=== PATIENT | female | born 1965 | race Caucasian/White ===

== ENCOUNTER → 2016-09-07 | Day surgery (SDC) ==
--- NOTE | 2016-09-07 10:15 | OPERATIVE NOTE ---
PROCEDURE DATE: 09/07/2016 PREOPERATIVE DIAGNOSIS: Class 4 mammogram, upper outer quadrant left side. PROCEDURE: Ultrasound biopsy. PROCEDURE IN DETAIL: The patient is brought to the Ultrasound Suite and placed in supine position. After her breast was prepped and draped, Xylocaine was introduced around the lesion under ultrasound guidance. A stab wound was made and a SenoRx needle was placed into the lesion. Multiple cores were obtained. A titanium marker was placed on needle removal. Compression dressing was applied. The patient was allowed to dress and go home.
== END | disposition home or self-care (01) ==
LOC: MAMMO 07:52 → EDSTATUS 08:30
PROVIDERS: ATTEND Surgery
DX: D24.2 Benign neoplasm of left breast (principal)
CPT/HCPCS: 19083; 88305; A4648

== ENCOUNTER 2016-11-20 07:30 | Inpatient (IN) ==
[2016-12-12 14:31] LABS: MANUAL DIFF NEEDED? NO; URINE MICRO REVIEW NEEDED? NO; URINE SOURCE VOIDED
[2016-12-12 14:43] LABS: BILIRUBIN URINE NEGATIVE (NEGATIVE); BLOOD URINE NEGATIVE (NEGATIVE); COLOR YELLOW; GLUCOSE URINE NEGATIVE (NEGATIVE); LEUKOCYTES URINE NEGATIVE (NEGATIVE); NITRITE URINE POSITIVE (NEGATIVE); PROTEIN URINE NEGATIVE (NEGATIVE); SP GRAVITY URINE 1.021; TURBIDITY URINE CLEAR (CLEAR); UROBILINOGEN URINE NORMAL (NORMAL)
[2016-12-12 14:45] LABS: UR EPITHELIAL CELLS <10 /HPF (<10); URINE BACTERIA 4+ /HPF; URINE RBC <10 /HPF (<10); URINE WBC <10 /HPF (<10)
[2016-12-12 14:54] LABS: BASO% 0.6 % (0.0-0.8); EOS# 0.17 X1000 (0.0-0.7); EOS% 2.7 % (0.0-10.0); HEMATOCRIT 38.4 % (37.0-47.0); HEMOGLOBIN 12.6 g/dL (12.0-16.0); LYMPH# 2.23 X1000 (1.2-3.4); LYMPH% 35.6 % (20.5-51.1); MCH 28.3 PG (27-31); MCHC 32.8 g/dL (33-37); MCV 86.3 FL (81-99); MONO# 0.46 X1000 (0.11-0.59); MONO% 7.3 % (1.7-9.3); MPV 9.9 FL (7.4-10.4); NEUT% 53.8 % (42.2-75.2); PLT 309 X1000 (130-400); RBC 4.45 XMIL (4.2-5.4)
[2016-12-12 15:15] LABS: AGAP 11; ALBUMIN 4.2 g/dL (3.5-5.0); ALKALINE PHOSPHATASE 67 U/L (32-104); BUN 14 mg/dL (8-22); CALCIUM 8.7 mg/dL (8.8-10.2); CHLORIDE 101 mmol/L (98-107); COSMO 274; GOT 20 U/L (10-30); GPT 22 U/L (10-36); POTASSIUM 4.5 mmol/L (3.5-5.1); SODIUM 137 mmol/L (136-145); TCO2 25 mmol/L (25-35); TOTAL BILIRUBIN 0.62 mg/dL (0.20-1.00); TOTAL PROTEIN 7.6 g/dL (6.3-8.3)
[2016-12-19] MEDS ORDERED: LR 1,000 ML ONE ×2 (06:07→12:36)
[2016-12-19] MEDS ORDERED: PEPCID ONE (06:07)
[2016-12-19] MEDS ORDERED: REGLAN ONE (06:07)
[2016-12-19] MEDS ORDERED: TRANSDERM-SCOP ONE (06:07)
[2016-12-19] MEDS ORDERED: KEFZOL 2 GM/D5W 2 GM/50 ML IVPB ONE (06:07)
[2016-12-19] MEDS ORDERED: LOVENOX ONE (06:07)
[2016-12-19] MEDS ORDERED: COREG ONE (06:30)
[2016-12-19] MEDS ORDERED: COREG PO ONE (06:45)
[2016-12-19] MEDS ORDERED: NS 250 ML ONE (07:07)
[2016-12-19] MEDS ORDERED: NS 2,000 ML ONE (07:07)
[2016-12-19] MEDS ORDERED: BACITRACIN ONE (07:08)
[2016-12-19] MEDS ORDERED: EXPAREL 1.3% ONE (07:08)
[2016-12-19] MEDS ORDERED: METHYLENE BLUE 0.5% IV ONE (07:15)
[2016-12-19 08:16] LABS: URINE MICRO REVIEW NEEDED? NO; URINE SOURCE CATH
--- NOTE | 2016-12-19 08:27 | Diag Imaging Result Document ---
PROCEDURE NAME: LYMPHOSCINTIGRAPHY W/IMG - 12/19/2016 LYMPHOSCINTIGRAPHY OF THE LEFT BREAST: COMPARISON: None. FINDINGS: 527 mCi of radiotracer was injected. After a delay, there was appearance of at least one sentinel lymph node in the medial left breast. No definite axillary sentinel lymph node visible. IMPRESSION: [place] lymph node visible in the medial left breast.
[2016-12-19] MEDS ORDERED: KEFZOL 1 GM/D5W 1 GM/50 ML IVPB ONE (10:49)
[2016-12-19 11:36] LABS: BILIRUBIN URINE NEGATIVE (NEGATIVE); BLOOD URINE NEGATIVE (NEGATIVE); COLOR YELLOW; GLUCOSE URINE NEGATIVE (NEGATIVE); LEUKOCYTES URINE NEGATIVE (NEGATIVE); NITRITE URINE NEGATIVE (NEGATIVE); PH URINE 5.5; PROTEIN URINE NEGATIVE (NEGATIVE); SP GRAVITY URINE 1.012; TURBIDITY URINE CLEAR (CLEAR); UROBILINOGEN URINE NORMAL (NORMAL)
[2016-12-19 11:37] LABS: UR EPITHELIAL CELLS <10 /HPF (<10); URINE BACTERIA NEGATIVE /HPF; URINE RBC <10 /HPF (<10); URINE WBC <10 /HPF (<10)
[2016-12-19] MEDS ORDERED: FENTANYL ONE (12:22)
[2016-12-19] MEDS ORDERED: DIPRIVAN 1% ONE (12:23)
[2016-12-19] MEDS ORDERED: VERSED ONE (12:23)
[2016-12-19] MEDS ORDERED: MORPHINE PCA ONE (12:36)
[2016-12-19] MEDS ORDERED: MORPHINE ONE (12:47)
[2016-12-19] MEDS ORDERED: SODIUM CHLORIDE 0.9% INJ PRN (12:52)
[2016-12-19] MEDS ORDERED: MORPHINE PCA IV PRN (12:52)
[2016-12-19] MEDS ORDERED: NARCAN IV PRN (12:52)
[2016-12-19] MEDS ORDERED: PHENERGAN IV PRN (12:52)
[2016-12-19] MEDS ORDERED: LR 1,000 ML IV SCH (12:52)
[2016-12-19] MEDS ORDERED: NEOSTIGMINE ONE (13:21)
[2016-12-19] MEDS ORDERED: STERILE WATER INJ. ONE (13:21)
[2016-12-19] MEDS ORDERED: NORCURON ONE (13:21)
[2016-12-19] MEDS ORDERED: ZOFRAN ONE (13:21)
[2016-12-19] MEDS ORDERED: ROBINUL ONE (13:22)
[2016-12-19] MEDS ORDERED: QUELICIN (DOSE) ONE (13:22)
[2016-12-19] MEDS ORDERED: LR 3,000 ML ONE (13:22)
[2016-12-19] MEDS ORDERED: XYLOCAINE-MPF 2% ONE (13:22)
[2016-12-19] MEDS ORDERED: KLOR-CON PO PRN (14:12)
[2016-12-19] MEDS ORDERED: ULTRAM PO PRN ×2 (14:12→17:28)
[2016-12-19] MEDS ORDERED: NEURONTIN PO PRN (14:12)
[2016-12-19] MEDS ORDERED: BUSPAR PO PRN (14:12)
[2016-12-19] MEDS: LR 1,000 ML IV SCH ×2 (14:49→18:52)
--- NOTE | 2016-12-19 15:08 | OPERATIVE NOTE ---
PROCEDURE DATE: 12/19/2016 PREOPERATIVE DIAGNOSIS: Carcinoma in situ, left breast. POSTOPERATIVE DIAGNOSIS: Carcinoma in situ, left breast. PROCEDURE: Total mastectomy with sentinel nodes on the left, simple mastectomy on the right with planned reconstruction by Dr. Holley that will be covered in a separate operative note. DESCRIPTION OF THE PROCEDURE: The patient has brought to the operating room. After satisfactory induction of IV and endotracheal anesthesia, athrombic TEDs and a Payton catheter were placed. Both breasts were prepped and draped in the appropriate manner. Initially, a simple mastectomy was performed on a previously marked out area by Dr. Holley. Dissection was taken with superior and inferior flaps being elevated and dissection taken down to the fascia of the pectoralis major muscle. The breast was swept laterally. On reaching the lateral border of the pectoralis, the breast itself was amputated. Primary dissection was performed with a knife and electrocautery. Estimated blood loss was around 75 mL. Area was then packed away. Attention was then taken to the left side. A similar mastectomy was performed on the left side with removal of 1 sentinel node. Again, superior and inferior flaps were elevated with primary dissection being performed by a knife and electrocautery. The pectoralis fascia was left. The breast flaps were felt to be satisfactory in thickness. The breast was amputated after removal of the sentinel node. This area was likewise packed away. Dr. Holley will subsequently enter the suite to initiate the reconstruction part of the surgery. Estimated blood loss for my part was about 150 mL. cc: Tomi Callejas MD
--- NOTE | 2016-12-19 17:36 | OPERATIVE NOTE ---
PROCEDURE DATE: 12/19/20162016 PROCEDURE: Bilateral placement of submuscular tissue expanders for breast reconstruction. SURGEON: Myron Holley MD ICD 10 DIAGNOSIS CODE: Z85.3, personal history of breast cancer. CPT CODE: 60570, placement tissue utility division project manager, [id number], placement of tissue utility division project manager on the other side. INDICATIONS FOR PROCEDURE: The patient is a 51-year-old white female who has a personal history of breast cancer with Dr. 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 She desires bilateral mastectomies to prevent cancer in the future. Dr. Callejas agrees with the plan. My plan is to put in bilateral submuscular tissue expanders for breast reconstruction. She was seen in the office for informed consent on 11/21/2016. At that point, she understood that she would have a breast reconstruction done after Dr. Callejas does the mastectomies with temporary submuscular tissue expanders. She understood that there would be a period of time when we were doing her expansion when she will not have optimal breast shape and she understands that exact shape and exact bra cup sizes cannot be guaranteed. She knows risks include infection, blood loss, blood clots in legs, heart problems, lung problems, allergic reactions, or blood and serum collections in the operative sites which might require drainage. She understands that tissue expanders are expandable devices that have a magnet in them so the fill port can be identified. She cannot have an MRI scan while the magnet is in place. She understands exact size, shape cannot be guaranteed. She knows her skin incision will be the regular mastectomy incision that is where the scars will be. DESCRIPTION OF PROCEDURE: The patient brought to the operating room after marked outpatient surgery in sitting position. She went to the operating room, had general anesthesia, was prepped and draped. The crucial corners of markings were tattooed methylene blue. The folds were marked with silk sutures to prevent dissecting them free. Once she was prepped and draped Dr. Callejas proceeded to do the mastectomies and sentinel lymph node biopsy on the left side. When he was completed the reconstruction began. Submuscular pockets were dissected under the pectoralis major muscle and under the pectoralis minor muscle. Once the submuscular pockets were dissected and equal underneath she was irrigated bacitracin solution. Exparel was injected into the muscles and subcutaneous tissue for postoperative pain control. She then had 500 mL expanders placed into the pocket with 2 drains in the pocket that were secured laterally with internal silk to prevent them from rotating. The muscles were then closed with 3-0 Polysorb interrupted sutures. Another 100 mL of fluid were placed and the utility division project manager so she had 200 mL placed by the end of the operation. She had 2 drains in each pocket. The lymph node dissection on the left side had its fatty dissection area reclosed to isolate the pocket. A separate drain was not placed in this dissection. The skin was temporarily tacked closed over drain with silk sutures and then closed with 3-0 Polysorb interrupted sutures in the fat, a running 3-0 Polysorb deep dermal suture, followed by running 4-0 Biosyn subcuticular stitch. The drains were secured with silk drain stitches. The patient tolerated the procedure well. The type of expanders that were used in the patient were [employer]outs 133 MV-14-[id number] tissue expanders. The serial number for the right one was [id number]. The serial number for the left utility division project manager was [id number]. Both were filled to 200 mL of fluid in the operating room. She tolerated the procedure well and was transported to recovery room in good condition. cc: MD Tomi Madden MD
[2016-12-19] MEDS: ALDACTONE PO SCH (20:04)
[2016-12-19] MEDS: PERIDEX MT SCH (20:04)
[2016-12-19] MEDS: COREG PO SCH (20:05)
[2016-12-20] MEDS: LR 1,000 ML IV SCH ×4 (02:04→16:29)
[2016-12-20] MEDS: BENADRYL IV PRN ×3 (02:06→17:11)
[2016-12-20] MEDS: NORCO-10 PO PRN ×3 (07:36→16:29)
[2016-12-20] MEDS: ALDACTONE PO SCH (08:16)
[2016-12-20] MEDS: PERIDEX MT SCH (08:18)
[2016-12-20] MEDS: COREG PO SCH (08:20)
[2016-12-20] MEDS ORDERED: NORVASC PO SCH (09:00)
[2016-12-20] MEDS ORDERED: LASIX PO SCH (09:00)
[2016-12-20] MEDS ORDERED: COZAAR PO SCH (09:00)
[2016-12-20] MEDS ORDERED: ZYRTEC PO SCH (09:00)
[2016-12-20 15:29] VITALS: BP 123/70
[2016-12-20] MEDS ORDERED: LOVENOX SUBQ ONE (17:53)
--- NOTE | 2016-12-21 15:02 | DISCHARGE SUMMARY ---
ADMISSION DATE: 12/19/2016 DISCHARGE DATE: 12/20/2016 ADMISSION DIAGNOSIS: Acute left breast cancer. DISCHARGE DIAGNOSIS: Acute left breast cancer with double mastectomies. HOSPITAL COURSE: The patient was admitted to the hospital via outpatient surgery, where preoperative ward were made for bilateral total mastectomies to be performed by Dr. Callejas with a left sentinel lymph node biopsy. She went to the operating room, had an uncomplicated surgery. She did well during the case, did well postoperatively. She has done well on the floor. Pain control is adequate. Surgical sites are healing well. Drains are functioning properly. She is not nauseated. She does have a little itching with the [place], a codeine-based product. She can take Ir[place] and Benadryl at home, but I am also discharging her with a prescription for Demerol if she can use that for pain and have less itching. She knows how to take care of her drains. I will see her in the office on Sunday for a dressing change before the weekend. cc: MD Tomi Madden MD
== END 2016-12-20 19:39 | disposition home or self-care (01) ==
LOC: SURHOLD 12-19 03:02 → 4N 12-19 08:25
PROVIDERS: ADMIT Surgery; ATTEND Surgery Plastic and Reconstructive Surgery
PROC: GE.MAST (2016-12-19 07:14)